=== PATIENT | male | born 1960 | race Caucasian/White ===

== ENCOUNTER 2022-10-22 08:45 | Outpatient (OUT) | payer BC, SELFPAY ==
--- NOTE | 2022-10-22 09:00 | CA_ITS ---
Patient: CONSTANZA BATISTA Exam Date: 10/22/2022 : 1960 Gender:M Ordering : DR Jose Veliz D.O. Admission #: [id number] Family : Order #: [id number] CLICK HERE TO VIEW EXAM ECHOCARDIOGRAM REPORT PROCEDURE: CA ECHO DOPPLER COMPLETE INDICATIONS: Dyspnea on exertion, fatigue, heart murmur, hypertension, diabetes COMPARISON: None. DESCRIPTION: COMPLETE ECHOCARDIOGRAM Real-time transthoracic echocardiography with 2D, M-mode, spectral and color flow Doppler performed. QUALITY: Technical quality was good. LEFT VENTRICLE: Normal chamber size. Mild concentric left ventricular hypertrophy. Normal systolic function. LV EF: Normal left ventricular ejection fraction, (65%). DIASTOLIC: Normal diastolic function. ATRIAL SEPTUM: Visually appears intact. LEFT ATRIUM: Normal chamber size. RIGHT ATRIUM: Normal chamber size. RIGHT VENTRICLE: Normal chamber size. Normal right ventricular systolic function. TRICUSPID VALVE: Normal mobility and thickness. No stenosis with trivial regurgitation. Doppler studies reveal mildly (35-45) elevated right sided pressures. RVSP 36 mmHg MITRAL VALVE: Normal mobility and thickness. No evidence of mitral valve stenosis. Mild mitral annular calcification. AORTIC VALVE: The aortic valve is likely bicuspid with a raphae [Romel type I] and fusion of the left and noncoronary cusps. Moderate calcifications are seen between the non-coronary cusp and left coronary cusp of the aortic valve. DVI 0.9. Trivial aortic regurgitation. No evidence of aortic valve stenosis. AORTIC ROOT: Normal diameter and appearance. PULMONIC VALVE: Normal thickness and mobility. No stenosis. No regurgitation. PERICARDIUM: No evidence of pericardial effusion. IVC: Collapses with inspirations. PLEURA: CONCLUSION: 1. Mild concentric left ventricular hypertrophy. Normal left normal left ventricular systolic function. LVEF is 65%. 2. Normal right ventricular size and systolic function. 3. Normal diastolic function. 4. Likely bicuspid aortic valve with a raphae [Romel type I], with no significant stenosis or regurgitation. 5. Mildly elevated right-sided pressures. Adult Echocardiography Procedure Report Left Ventricle LVEDD (3.7 - 5.6 cm): 3.46 cm LVESD (2.2 - 4.0 cm): 2.18 cm LVIVS thickness (0.6 - 1.2 cm): 1.29 cm LVPW thickness (0.5 - 1.0 cm): 1.21 cm e': 0.07 m/s E - e': 10.79 LVOT Max Gradient: 5.92 mm[Hg], 6.19 mm[Hg] LVOT Area (cm2): 1.24 m/s, 1.22 m/s Peak Velocity (LVOT): 1.24 m/s, 1.22 m/s Mean Velocity (LVOT): 0.86 m/s LVOT Diameter 2.38 cm Left Atrium LA Volume Index (2D A2C): 22.45 ml/m2 Left Atrium Systolic Dimension: 2.59 cm Mitral Valve MV E to A Ratio: 0.96, 0.89 Mitral Valve A-Wave Peak Velocity: 0.84 m/s Mitral Valve E-Wave Peak Velocity: 0.78 m/s Right Ventricle Aorta AO Root Diam: 3.18 cm Ascending Ao Diam: 3.64 cm Aortic Valve AoV Area (Peak Felix): 4.31 cm2, 4.18 cm2, 4.21 cm2, 4.08 cm2, 4.31 cm2, 4.31 cm2, 4.40 cm2, 4.40 cm2 AoV Area (VTI): 4.63 cm2, 4.25 cm2 Peak Velocity(Antegrade Flow): 1.32 m/s, 1.24 m/s, 1.25 m/s Peak Gradient(Antegrade Flow): 6.29 mm[Hg], 6.99 mm[Hg], 6.15 mm[Hg] Mean Velocity(Antegrade Flow): 1.01 m/s, 0.88 m/s Mean Gradient(Antegrade Flow): 4.35 mm[Hg], 3.29 mm[Hg] Velocity Time Integral: 34.45 cm, 28.87 cm Tricuspid Valve Peak Velocity (Regurgitant Flow): 2.49 m/s, 2.86 m/s Pulmonic Valve Peak Velocity: 0.82 m/s Peak Gradient: 2.97 mm[Hg], 2.44 mm[Hg] Right Atrium Right Atrium Systolic Pressure: 35.06 ml, 35.06 ml Dictated by: Ken Herring M.D. on 10/22/2022 at 18:19 Approved by: Ken Herring M.D. on 10/22/2022 at 18:28
== END 2022-10-22 08:46 | disposition home or self-care (01) ==
PROVIDERS: PCP Internal Medicine; Visit Provider Internal Medicine
DX: R01.1 Cardiac murmur, unspecified (principal); R53.83 Other fatigue; R06.09 Other forms of dyspnea
CPT/HCPCS: 93306

== ENCOUNTER 2022-11-04 09:10 | Outpatient (OUT) | payer BC, SELFPAY ==
[2022-11-04 09:44] LABS: Basophils Percent Auto 0.5 % (0.2-2.0); Eosinophils Absolute Auto 0.2 10^3/uL (0.0-0.7); Eosinophils Percent Auto 1.9 % (0.9-7.0); Hematocrit 44.7 % (42.0-54.0); Hemoglobin 15.2 g/dL (14.0-18.0); Immature Granulocytes Abs Auto 0.03 10^3/uL (0.00-0.03); Immature Granulocytes Pct Auto 0.4 % (0.0-0.5); Lymphocytes Absolute Auto 2.4 10^3/uL (1.2-3.8); Lymphocytes Percent Auto 28.4 % (20.5-60.0); Mean Corpuscular Hemoglobin 30.5 pg (25.9-34.0); Mean Corpuscular Volume 89.8 fL (80.0-94.0); Mean Platelet Volume 9.3 fL (9.5-13.5); Monocytes Absolute Auto 0.9 10^3/uL (0.3-0.8); Monocytes Percent Auto 10.3 % (1.7-12.0); Neutrophils Absolute Auto 4.9 10^3/uL (1.4-6.5); Neutrophils Percent Auto 58.5 % (43.0-75.0); Platelet Count 289 10^3/uL (150-450); Red Blood Count 4.98 10^6/uL (4.70-6.10); Red Cell Distribution Width 12.5 % (11.0-15.0); White Blood Count 8.3 10^3/uL (4.0-11.0)
[2022-11-04 09:57] LABS: Microalbumin Urine Random <1.3 mg/dL (<=30.0)
[2022-11-04 10:02] LABS: Alanine Aminotransferase 56 U/L (16-63); Albumin Globulin Ratio 1.3; Albumin Level 4.1 g/dL (3.4-5.0); Alkaline Phosphatase 122 U/L (46-116); Anion Gap 13.2; Aspartate Amino Transferase 19 U/L (15-37); BUN Creatinine Ratio 25.3; Bilirubin Total 0.4 mg/dL (0.2-1.0); Carbon Dioxide 29.3 mmol/L (21.0-32.0); Chloride 105 mmol/L (98-107); Chol HDL Ratio 2.5; Cholesterol 150 mg/dL (<=200); Estimated GFR (African America >60 (>=60); Estimated GFR (Non-African Ame >60 (>=60); Globulin 3.2 g/dL; Glucose 176 mg/dL (74-106); HDL Cholesterol 60 mg/dL (40-60); LDL Cholesterol Calculated 78.4 mg/dL; Potassium 4.5 mmol/L (3.5-5.1); Sodium 143 mmol/L (136-145); Total Protein 7.3 g/dL (6.4-8.2); Triglycerides 58 mg/dL (<=150); VLDL CHOLESTEROL 11.6 mg/dL
[2022-11-04 10:51] LABS: Prostate Specific Antigen Scrn 2.21 ng/mL (<=4.00)
== END 2022-11-04 09:11 | disposition home or self-care (01) ==
LOC: LAB 09:16
PROVIDERS: PCP Internal Medicine; Visit Provider Internal Medicine
DX: Z12.5 Encounter for screening for malignant neoplasm of prostate (principal); E11.65 Type 2 diabetes mellitus with hyperglycemia; E11.42 Type 2 diabetes mellitus with diabetic polyneuropathy; E78.00 Pure hypercholesterolemia, unspecified; R53.83 Other fatigue; Z79.4 Long term (current) use of insulin
CPT/HCPCS: 36415; 80053; 80061; 82043; 85025; G0103

== ENCOUNTER 2025-03-15 08:53 | Outpatient (OUT) | payer MEDICARE, SELFPAY ==
--- OUTSIDE RECORDS SUMMARY | 2024-01-03 08:15 | XMS_ITS ---
Author Organization [facility] Address [address] [place] [address] Care Team Providers Care Gynaecological Oncologist Name Role Phone MARICRUZ ABBASI DO Primary Care Provider Chai Silva Unavailable [phone] REASON FOR VISIT Cervical spondylosis with myopathy- Dr. Mills Encounters Encounter Location Date Provider Diagnosis [facility] [address] [place] [phone] 01/03/2024 Chai Varela Plan Of Treatment No Information Progress Notes * CONSTANZA BATISTADOB:1960 ( 65 yo M)Acc No.[id number]:01/03/2024 Patient:?CONSTANZA BATISTA :?Chai Varela MDDOB:1960???Age:63 Y???Sex: MaleDate:4Phone:[phone]:[address] [place] [address] [address] [place], [id number]:MARICRUZ ABBASI DO Subjective: * Chief Complaints: * 1 . Cervical spondylosis with myopathy- Dr. Mills. * Medical History: Objective: * Vitals: Assessment: Plan: * Treatment: Forms: * Images: * Electronic signature of Chai Varela MD on 03/15/2025 at 08:57 AM ESTSign off status: Pending * Provider: Oseas Varela MD Date: 0 01/03/2024 Generated for Printing/Faxing/eTransmitting on:?03/15/2025 08:57 AM EST
--- OUTSIDE RECORDS SUMMARY | 2025-03-05 09:00 | XMS_ITS | Encounter Summary ---
Author Organization [facility] Address [address], [address] [place] [address] Care Team Providers Care Envelope Sealer Operator Name Role Phone Jose Veliz DO Primary Care Provider [phone] Encounter Details DateTypeDepartmentCare Team (Latest Contact Info)Xuahqmrsoft25/04/2025 9:00 AM EST - 03/05/2025 9:24 AM ESTHospital Encounter [facility] Physical Therapy [address] [place] [address] Isreal Stephen, SHAYY Discharge Disposition: Home or Self Care Social History Tobacco UseTypesPacks/DayYears UsedDateSmoking Tobacco: FormerCigarettes Smokeless Tobacco: NeverAlcohol UseStandard Drinks/WeekCommentsNot Currently0 (1 standard drink = 0.6 oz pure alcohol)Interpersonal Safety Domain Source: IP Abuse ScreeningAnswerDate RecordedPhysical obgwpQbholu20/19/2024Verbal abuse Paddoi1304/19/2024Emotional cszeuYphqbq35/19/2024Financial bdxnrKtfjry86/19/2024 Sexual rvxxjYfyxsr33/19/2024Sex and Gender InformationValueDate RecordedSex Assigned at BirthNot on fileLegal GjvHjhv2106/11/2012 1:57 PM ESTGender Identity Not on fileSexual OrientationNot on filedocumented as of this encounter Medications at Time of Discharge MedicationSigDispense QuantityRefillsLast FilledStart DateEnd Date lisinopril (PRINIVIL;ZESTRIL) 10 MG tablet Take 1 tablet by mouth daily baclofen (LIORESAL) 10 MG tablet Take 1 tablet by mouth 3 times daily01/11/2024 metFORMIN (GLUCOPHAGE) 500 MG tablet Take 1 tablet by mouth in the morning and 1 tablet in the evening. insulin glargine (BASAGLAR KWIKPEN) 100 UNIT/ML injection pen Inject 56 Units into the skin qhwxlgm5904/02/2024 dapagliflozin (FARXIGA) 10 MG tablet Take 1 tablet by mouth every morning aspirin 81 MG EC tablet Take 1 tablet by mouth daily citalopram (CELEXA) 20 MG tablet Take 1 tablet by mouth daily atorvastatin (LIPITOR) 80 MG tablet Take 1 tablet by mouth daily amLODIPine (NORVASC) 5 MG tablet Take 1 tablet by mouth dailydocumented as of this encounter Progress Notes * Isreal Stephen, PT - 03/05/2025 9:00 AM EST [facility] Outpatient Physical Therapy Daily Note Patient: Jerome Maravilla : 1960 CSN #: [id number] Referring Physician: Dewey Mills MD Date: 03/05/2025 Treatment Diagnosis: Difficulty walking Onset Date: 12/17/21 PT Insurance Information: Medicare Total # of Visits Approved: 71 Per Physician Order Total # of Visits to Date: 71 No Show: 0 Canceled Appointment: 1 04/04/25 Plan of Care/Recert Due Pre-Treatment Pain: 0/10 Subjective: Patient reports increased stiffness, but is feeling ok. Exercises: Exercise 2: seated HS stretch 2x45 ea with AAROM Exercise 3: Amb with rollator walker: 303' before requiring a seated rest break Exercise 4: Transfer training: to and up from the floor x2 Exercise 5: Seated HS curls with Green TB x3 with 5 sec hold // LAQ x10 // Hip abd Green TB x15 Exercise 9: STS from chair x10 Exercise 15: hip abd/marching/sidestepping x10 ea Measures obtained for physician update/updated POC Assessment Body Structures, Functions, Activity Limitations Requiring Skilled Therapeutic Intervention: Decreased functional mobility , Decreased ADL status, Decreased ROM, Decreased strength, Increased pain, Decreased posture Assessment: The patient has attended his initial evaluation and 70 follow-up visits. He was hospitalized for a week and reports he is a little more stiff. On reassessment he was able to ambualte 303'with rollator walker before requiring a seated rest break. He performed the 5 time sit to insurance underwriter sales 32.64 seconds. He required moderate assistance to perform floor to stand transfer. New goals established for 5 time sit to stand test and for floor to stand transfers. 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 Activity Tolerance Activity Tolerance: Patient tolerated treatment well Patient Education Patient Education: Home safety Pt verbalized/demonstrated good understanding: [x] Yes [] No, pt required further clarification. Post Treatment Pain: 0/10 Plan Plan Frequency: 2 Plan weeks: 4 Goals (Total # of Visits to Date: 71) Short Term Goals Time Frame for Short Term Goals: 2 weeks Short Term Goal 1: Pt to initiate HEP for improved B LE strength and endurance. - MET Short Term Goal 2: Patient to tolerate 30 min of ther ex/act for improved strength and endurance. -met Short Term Goal 3: Patient to be instructed in postural awareness and gait training to improve mobility.-met Residential Goals Time Frame for Press Tender Smoke Signal Goals : 6 weeks Residential Goal 1: Pt will independent and compliant with HEP to maintain functional gains made at therapy.-progressing Residential Goal 2: Patient to be referred to freight handler for R AFO as needed to improve safety with gait.-met Residential Goal 3: Patient to be able to walk >/=350ft with FWW or LRAD with minimal gait deviations and no fatigue to improve mobility. -progressing: he was able to ambulate 303' with rollator walker before requesting a seated rest break. Press Tender Smoke Signal Goal 4: Patient to report >/=50% improvement in neck pain and LE tone for improved QOL. (--met/cont pt reports 50-60% as he is able to complete more reps and walker with greater distance, continues with gait deviations and fatigue throughout session) Press Tender Smoke Signal Goal 5: Added 09/26/24: Patient to be fitted by freight handler for B AFO's when appropriate/plantar flexor tone has sufficiently decreased and be compliant with wearing them in order to decrease fall risk with gait.- MET : wears his AFO's Additional Goals?: Yes half-way goal 6: Patient will perform the five time sit to stand test within 20 seconds to indicate improved muscular power and strength. half-way goal 7: Patient will perform floor to stand transfers with TN. Minutes Tracking: Time In: 0900 Time Out: 0945 Minutes: 45 Timed Code Treatment Minutes: 43 Minutes Isreal Stephen, PT, DPT, OCS, Cert. DN Date: 03/05/2025 documented in this encounter Plan of Treatment DateTypeDepartmentCare Team (Latest Contact Info)Jhrtqykhqcf74/18/2025 9:00 AM ESTAppointment [facility] Physical Therapy [address] [place], [place] [phone] Isreal Stephen, PT 03/19/2025 9:45 AM ESTAppointment [facility] Occupational Therapy [address] [place], [place] [phone] BelleKarina tan, OTR/L 03/21/2025 9:00 AM ESTAppointment [facility] Occupational Therapy [address] [place], [place] [phone] BelleKarina tan, OTR/L 03/21/2025 9:45 AM ESTAppointment [facility] Physical Therapy [address] [place], [place] [phone] Snow Gomez, NEON MOLDER 03/26/2025 9:00 AM ESTAppointment [facility] Physical Therapy [address] [place], [place] [phone] Isreal Stephen, PT 03/26/2025 9:45 AM ESTAppointment [facility] Occupational Therapy [address] [place], [place] [phone] BelleMikal tana, OTR/L documented as of this encounter Visit Diagnoses Not on filedocumented in this encounter Care Teams Team MemberRelationshipSpecialtyStart DateEnd Date Jsoe Veliz DO [address] [place] [address] PCP - GeneralInternal Vgvmtkyj74/5/22documented as of this encounter
--- OUTSIDE RECORDS SUMMARY | 2025-03-05 09:25 | XMS_ITS | Encounter Summary ---
Author Organization [facility] Address [address], [address] [place] [address] Care Team Providers Care Skin Tanner Name Role Phone Jose Veliz DO Primary Care Provider [phone] Encounter Details DateTypeDepartmentCare Team (Latest Contact Info)Angmdnxokkb65/04/2025 9:25 AM EST - 03/05/2025 11:[address] [facility] Occupational Therapy [address] [place] [address] Karina Odonnell OTR/Fay Discharge Disposition: Home or Self Care Social History Tobacco UseTypesPacks/DayYears UsedDateSmoking Tobacco: FormerCigarettes Smokeless Tobacco: NeverAlcohol UseStandard Drinks/WeekCommentsNot Currently0 (1 standard drink = 0.6 oz pure alcohol)Interpersonal Safety Domain Source: IP Abuse ScreeningAnswerDate RecordedPhysical vlebpIifboz17/19/2024Verbal abuse Luwkkx5504/19/2024Emotional qlptrFmyrsj77/19/2024Financial vfukpJqwyis80/19/2024 Sexual ygbpvTgqqkk90/19/2024Sex and Gender InformationValueDate RecordedSex Assigned at BirthNot on fileLegal EjcQpgw7006/11/2012 1:57 PM ESTGender Identity Not on fileSexual [...] pen Inject 56 Units into the skin ywccnzp0604/02/2024 dapagliflozin (FARXIGA) 10 MG tablet Take 1 tablet by mouth every morning aspirin 81 MG EC tablet Take 1 tablet by mouth daily citalopram (CELEXA) 20 MG tablet Take 1 tablet by mouth daily atorvastatin (LIPITOR) 80 MG tablet Take 1 tablet by mouth daily amLODIPine (NORVASC) 5 MG tablet Take 1 tablet by mouth dailydocumented as of this encounter Progress Notes * Linda Longo - 03/05/2025 9:45 AM EST Occupational Therapy [facility] Outpatient Occupational Therapy DAILY TREATMENT NOTE Date: 03/05/2025 Patient???s Name: Jerome Maravilla Date of : 1960 (65 y.o.) Gender: male [facility] #: [id number] Medical Diagnosis: Cervical myelopathy s/p anterior cervical disectomy Referring Physician: Dewey Mills MD INSURANCE OT Insurance Information: Medicare Part A and B Total # of Visits to Date: 72 PAIN [x]No []Yes Location: Pain Rating (0-10 pain scale): Pain Description: SUBJECTIVE no new complaints Flow Sheet Exercise & Manual treatment Weight/ Level Reps/Time Comments PROM x x 25 min B UE throughout shoulder > digits T-band Supine - B ER, abduction Seated - diagonals Weight bar Supine - flexion and abd/horizontal add Band Diagonals while supine Power web MP flexion/extension B hands Flexbar green x15-20 Twists and bends Pulleys Flexion and abduction with elbow extension BUE bike 3' each way 2 pt pinch B 2 pt pinch Hand master Digit flexion and extension digigrip green x15 B Pie Filler egg red x15 B Pinches, director of product development, adduction/abduction Putty Various putty tools All therapeutic exercises and manual treatment completed to improve ROM and functional use of affected extremity. Therapeutic Activities / NMR Time Task Gross/FM Wobbleball and beading utilizing bilateral UE pinch, FMC FM GPB Retrieval of items on floor Patient SBA for lowering self to floor and picking up items in quadruped. Patient SBA for recovery with extended time Darts Seated and standing to improve functional use BUE and GMC as well balance Updated GOALS Time Frame for Jail Goals : 4 weeks Document Control Clerk Goal 1: Patient to state <30% impairment throughout daily tasks, as measured by the DASH to improve functional use of BUE. Continue []Met [x]Partially met []Not met Document Control Clerk Goal 2: Patient to improve B director of product development strength to 75# to improve strength for functional use.Continue []Met [x]Partially met []Not met Document Control Clerk Goal 3: Patient to improve GMC BUE AEB ability to transfer >65 blocks bilaterally withbox and block test. Continue R 47 L 52 []Met [x]Partially met []Not met Time Frame for Short Term Goals: 3 weeks Short Term Goal 1: Patient to be educated on HEP to improve FMC, BUE strength, and ROM to improve functional use of BUE. MET Continue as patient progresses. [x]Met []Partially met []Not met Short Term Goal 2: Patient to improve B FMC and dexterity AEB ability to complete GPB L hand >3.5 minutes, R hand <4 minutes. Continue R 3:27 L 4:05 []Met []Partially met []Not met ADDITIONAL COMMENTS EDUCATION New Education provided to patient/family/caregiver: []Yes: [x]No (Continued review of prior education) If yes Education Provided: Method of Education: [x]Discussion []Demonstration [] Written []Other Evaluation of Patient???s Response to Education: [x]Patient and or caregiver verbalized understanding []Patient and or Caregiver Demonstrated without assistance []Patient and or Caregiver Demonstrated with assistance []Needs additional instruction to demonstrate understanding of education ASSESSMENT Patient tolerated today???s treatment session: [x] Good [] Fair [] Poor Limitations/difficulties with treatment session due to: []Pain []Fatigue []Other medical complications []Other Goal Assessment: [] No Change [x]Improved Minutes Tracking: Time In: 948 Time Out: 1039 Minutes: 50 Timed Code Treatment Minutes: 48 Minutes PLAN [x]Continue with current plan of care []Medical ???Hold?? []I???Hold?? per patient request [] Change Treatment plan: [] Insurance hold __ Other Electronically signed by Alvarado Izaguirre/DELANO 03/05/2025 11:13 AM Cosigned by Karina Odonnell, OTR/L at 03/05/2025 2:51 PM EST documented in this encounter Plan of Treatment DateTypeDepartmentCare Team (Latest Contact Info)Conmtpflfad06/18/2025 9:[address] Physical Therapy [address] [place] [phone] Isreal Stephen, PT 03/19/2025 9:[address] Occupational Therapy [address] [place], [place] [phone] Karina Odonnell, OTR/L 03/21/2025 9:[address] Occupational Therapy [address] [place], [place] [phone] Karina Odonnell, OTR/L 03/21/2025 9:[address] Physical Therapy [address] [place], [place] [phone] Snow Gomez, FENCE REPAIRMAN 03/26/2025 9:[address] Physical Therapy [address] [place] [phone] Isreal Stephen, PT 03/26/2025 9:[address] Occupational Therapy [address] [place], [place] [phone] Karina Odonnell, OTR/L documented as of this encounter Visit Diagnoses Not on filedocumented in this encounter Care Teams Team MemberRelationshipSpecialtyStart DateEnd Date Jose Veliz DO [address] [place] [id number] PCP - GeneralInternal Ydgzwtsi76/5/22documented as of this encounter
--- OUTSIDE RECORDS SUMMARY | 2025-03-07 09:00 | XMS_ITS | Encounter Summary ---
Author Organization [facility] Address [address] [facility] [address], [address] [place] [address] Care Team Providers Care Change Advisor Name Role Phone Jose Veliz DO Primary Care Provider [phone] Encounter Details DateTypeDepartmentCare Team (Latest Contact Info)Ofomqddvrxh87/06/2025 9:00 AM EST - 03/07/2025 9:31 AM ESTHospital Encounter [facility] Occupational Therapy [address] [place] [address] Karina Odonnell OTR/Fay Discharge Disposition: Home or Self Care Social History Tobacco UseTypesPacks/DayYears UsedDateSmoking Tobacco: FormerCigarettes Smokeless Tobacco: NeverAlcohol UseStandard Drinks/WeekCommentsNot Currently0 (1 standard drink = 0.6 oz pure alcohol)Interpersonal Safety Domain Source: IP Abuse ScreeningAnswerDate RecordedPhysical jbbaaSygxul74/19/2024Verbal abuse Jwcraa9704/19/2024Emotional syrbtOrpgqo59/19/2024Financial bcnmmSgipaw81/19/2024 Sexual mvmglHigvhp95/19/2024Sex and Gender InformationValueDate RecordedSex Assigned at BirthNot on fileLegal TvuMmat2906/11/2012 1:57 PM ESTGender Identity Not on fileSexual [...] pen Inject 56 Units into the skin tyxpdem0104/02/2024 dapagliflozin (FARXIGA) 10 MG tablet Take 1 [...] encounter Progress Notes * Linda Longo - 03/07/2025 9:00 AM EST Occupational Therapy [facility] Outpatient Occupational Therapy DAILY TREATMENT NOTE Date: 03/07/2025 Patient???s Name: Jerome Maravilla Date of : 1960 (65 y.o.) Gender: male [facility] #: [id number] Medical Diagnosis: Cervical myelopathy s/p anterior cervical disectomy Referring Physician: Dewey Mills MD INSURANCE OT Insurance Information: Medicare Part A and B Total # of Visits to Date: 73 PAIN [x]No []Yes Location: Pain Rating (0-10 pain scale): Pain Description: SUBJECTIVE Pt states he feels less tight today. Flow Sheet Exercise & Manual treatment Weight/ [...] flexion and extension digigrip green x15 B Lie Detector Operator egg red x15 B Pinches, barn operator, adduction/abduction Putty Various putty tools All therapeutic exercises and manual treatment completed to improve ROM and functional use of affected extremity. Therapeutic Activities / NMR Time Task Gross/FM Wobbleball and beading utilizing bilateral UE pinch, FMC FM 15' Mini connect 4 Retrieval of items on floor Patient SBA for lowering self to floor and picking up items in quadruped. Patient SBA for recovery with extended time Darts Seated and standing to improve functional use BUE and GMC as well balance Updated GOALS Time Frame for Safety Spec Goals : 4 weeks Safety Spec Goal 1: Patient to state <30% impairment throughout daily tasks, as measured by the DASH to improve functional use of BUE. Continue []Met [x]Partially met []Not met Safety Spec Goal 2: Patient to improve B barn operator strength to 75# to improve strength for functional use.Continue []Met [x]Partially met []Not met Half-Way Goal 3: Patient to improve GMC BUE AEB ability to transfer >65 blocks bilaterally withbox and block test. Continue []Met [x]Partially met []Not met Time Frame [...] GPB L hand >3.5 minutes, R hand <3 minutes. Continue []Met []Partially met []Not met ADDITIONAL COMMENTS [...] No Change [x]Improved Minutes Tracking: Time In: 857 Time Out: 945 Minutes: 48 Timed Code Treatment Minutes: 46 Minutes PLAN [x]Continue with current plan of care []Medical ???Hold?? []I???Hold?? per patient request [] Change Treatment plan: [] Insurance hold __ Other Electronically signed by Alvarado Izaguirre/OT 03/07/2025 9:46 AM Cosigned by Karina Odonnell, OTR/L at 03/08/2025 1:57 PM EST documented in this encounter Plan of Treatment DateTypeDepartmentCare Team (Latest Contact Info)Apclzuuzbkb66/18/2025 9:00 AM ESTAppointment [facility] Physical Therapy [address] [place] [phone] Isreal Stephen, PT 03/19/2025 9:45 AM ESTAppointment [facility] Occupational Therapy [address] [place], [place] [phone] Karina Odonnell, OTR/L 03/21/2025 9:00 AM ESTAppointment [facility] Occupational Therapy [address] [place], [place] [phone] Karina Odonnell, OTR/L 03/21/2025 9:45 AM ESTAppointment [facility] Physical Therapy [address] [place], [place] [phone] Snow Gomez, FLUORESCENT LIGHTING MODEL MAKER 03/26/2025 9:00 AM ESTAppointment [facility] Physical Therapy [address] [place] [phone] Isreal Stephen, PT 03/26/2025 9:45 AM ESTAppointment [facility] Occupational Therapy [address] [place], [place] [phone] Karina Odonnell, OTR/L documented as of this encounter Visit Diagnoses Not on filedocumented in this encounter Care Teams Team MemberRelationshipSpecialtyStart DateEnd Date Jose Veliz DO [address] [place] [phone] PCP - GeneralInternal Usdfebdo95/5/22documented as of this encounter
--- OUTSIDE RECORDS SUMMARY | 2025-03-07 09:32 | XMS_ITS | Encounter Summary ---
Author Organization [facility] Address [address], [address] [place] [address] Care Team Providers Care Industrial Health Engineer Name Role Phone Jose Veliz DO Primary Care Provider [phone] Encounter Details DateTypeDepartmentCare Team (Latest Contact Info)Imkpbdamhnd69/06/2025 9:32 AM EST - 03/07/2025 11:59 PM ESTHospital Encounter [facility] Physical Therapy [address] [place] [address] Snow Gomez PTA Discharge Disposition: Home or Self Care Social History Tobacco UseTypesPacks/DayYears UsedDateSmoking Tobacco: FormerCigarettes Smokeless Tobacco: NeverAlcohol UseStandard Drinks/WeekCommentsNot Currently0 (1 standard drink = 0.6 oz pure alcohol)Interpersonal Safety Domain Source: IP Abuse ScreeningAnswerDate RecordedPhysical reroqFegczh03/19/2024Verbal abuse Birxxw0804/19/2024Emotional uevzfUkgoql05/19/2024Financial xkpltRihkix61/19/2024 Sexual labevKttpnd51/19/2024Sex and Gender InformationValueDate RecordedSex Assigned at BirthNot on fileLegal SlrVxmf3606/11/2012 1:57 PM ESTGender Identity Not on fileSexual [...] pen Inject 56 Units into the skin itozuaz6504/02/2024 dapagliflozin (FARXIGA) 10 MG tablet Take 1 tablet by mouth every morning aspirin 81 MG EC tablet Take 1 tablet by mouth daily citalopram (CELEXA) 20 MG tablet Take 1 tablet by mouth daily atorvastatin (LIPITOR) 80 MG tablet Take 1 tablet by mouth daily amLODIPine (NORVASC) 5 MG tablet Take 1 tablet by mouth dailydocumented as of this encounter Progress Notes * Snow Gomez PTA - 03/07/2025 9:45 AM EST [facility] Outpatient Physical Therapy Daily Note Patient: Jerome Maravilla : 1960 CSN #: [id number] Referring Physician: Dewey Mills MD Date: 03/07/2025 Treatment Diagnosis: Difficulty walking Onset Date: 12/17/21 PT Insurance Information: Medicare Total # of Visits Approved: 71 Per Physician Order Total # of Visits to Date: 72 No Show: 0 Canceled Appointment: 1 04/04/25 Plan of Care/Recert Due Pre-Treatment Pain: 0/10 Subjective: Pt denies pain this date, states that he is doing good. Exercises: Exercise 3: Amb with rollator walker: 350' Exercise 15: standing sink therex x10 ea Exercise 16: supine : bridges 2 x 10 // SLR 2 x 10 //supine knee <> chest 8x each leg // hip abd x 10 // chin tuck + lift x 10 , CROM rot 2 x 15--bridges only Manual: Joint Mobilization: PROM B LE's all major joints and planes, passive LTR to improve trunk ROM to decrease tone and improve mobility Assessment Assessment: Focused today's session on stretching d/t increased stiffness with relief noted post performance. Pt completed standing therex this date with good posture and technique. Noted pt's heel'swould come off floor with performance of squats, vc's to try and keep them on floor with fair carryover noted. Continue with stretches and strengthening next session. Will continue to progress as tole rated. Activity Tolerance Activity Tolerance: Patient tolerated treatment well Patient Education Patient Education: Home safety Pt verbalized/demonstrated good understanding: [x] Yes [] No, pt required further clarification. Post Treatment Pain: 0/10 Plan Plan Frequency: 2 Plan weeks: 4 Goals (Total # of Visits to Date: 72) Short Term Goals Time Frame for Short Term Goals: 2 weeks Short Term Goal 1: Pt to initiate HEP for improved B LE strength and endurance. - MET Short Term Goal 2: Patient to tolerate 30 min of ther ex/act for improved strength and endurance. -met Short Term Goal 3: Patient to be instructed in postural awareness and gait training to improve mobility.-met Long-Term Goals Time Frame for Long-Term Goals : 6 weeks Legislators Goal 1: Pt will independent and compliant with HEP to maintain functional gains made at therapy.-progressing Legislators Goal 2: Patient to be referred to behavioral health clinician for R AFO as needed to improve safety with gait.-met Legislators Goal 3: Patient to be able to walk >/=350ft with FWW or LRAD with minimal gait deviations and no fatigue to improve mobility. -progressing: he was able to ambulate 303' with rollator walker before requesting a seated rest break. Long-Term Goal 4: Patient to report >/=50% improvement in neck pain and LE tone for improved QOL. (--met/cont pt reports 50-60% as he is able to complete more reps and walker with greater distance, continues with gait deviations and fatigue throughout session) Legislators Goal 5: Added 09/26/24: Patient to be fitted by behavioral health clinician for B AFO's when appropriate/plantar flexor tone has sufficiently decreased and be compliant with wearing them in order to decrease fall risk with gait.- MET : wears his AFO's superintendent container terminal goal 6: Patient will perform the five time sit to stand test within 20 seconds to indicate improved muscular power and strength. snf goal 7: Patient will perform floor to stand transfers with [place]. Minutes Tracking: Time In: 0900 Time Out: 940 Minutes: 41 Snow Gomez PTA Date: 03/07/2025 Cosigned by Isreal Stephen, PT at 03/07/2025 10:58 AM EST documented in this encounter Plan of Treatment DateTypeDepartmentCare Team (Latest Contact Info)Ibneuelywif44/18/2025 9:00 AM ESTAppointment [facility] Physical Therapy [address] [place] [address] Isreal Stephen, PT 03/19/2025 9:45 AM ESTAppointment [facility] Occupational Therapy [address] [place], [place] [phone] Karina Odonnell, OTR/L 03/21/2025 9:00 AM ESTAppointment [facility] Occupational Therapy [address] [place] [address] Karina Odonnell OTR/L 03/21/2025 9:45 AM ESTAppointment [facility] Physical Therapy [address] [place] [phone] Snow Gomez, HYDRAULIC JACK ADJUSTER 03/26/2025 9:00 AM ESTAppointment [facility] Physical Therapy [address] [place] [address], [facility] Isreal Stephen, PT 03/26/2025 9:45 AM ESTAppointment [facility] Occupational Therapy [address] [place] [address] Karina Odonnell, OTR/L documented as of this encounter Visit Diagnoses Not on filedocumented in this encounter Care Teams Team MemberRelationshipSpecialtyStart DateEnd Date Jose Veliz DO [address] [facility] [place] [address] PCP - GeneralInternal Rpqjfslf88/5/22documented as of this encounter
--- OUTSIDE RECORDS SUMMARY | 2025-03-12 09:00 | XMS_ITS | Encounter Summary ---
Author Organization [facility] Address [address], [address] [place] [address] Care Team Providers Care Pole Shaver Name Role Phone Jose Veliz DO Primary Care Provider [phone] Encounter Details DateTypeDepartmentCare Team (Latest Contact Info)Dnemmtmleby69/11/2025 9:00 AM EST - 03/12/2025 9:09 AM ESTHospital Encounter [facility] Physical Therapy [address] [place] [address] Iseral Stephen, PT Arrived Discharge Disposition: Home or Self Care Social History Tobacco UseTypesPacks/DayYears UsedDateSmoking Tobacco: FormerCigarettes Smokeless Tobacco: NeverAlcohol UseStandard Drinks/WeekCommentsNot Currently0 (1 standard drink = 0.6 oz pure alcohol)Interpersonal Safety Domain Source: IP Abuse ScreeningAnswerDate RecordedPhysical vpxtxFyrsth54/19/2024Verbal abuse Zlyhnd2004/19/2024Emotional xigjmRlnyxh34/19/2024Financial hydvlJcxhgs60/19/2024 Sexual pqbtbFsholh63/19/2024Sex and Gender InformationValueDate RecordedSex Assigned at BirthNot on fileLegal CbqScdr7606/11/2012 1:57 PM ESTGender Identity Not on fileSexual [...] pen Inject 56 Units into the skin mzeitfx7304/02/2024 dapagliflozin (FARXIGA) 10 MG tablet Take 1 [...] Progress Notes * Isreal Stephen, PT - 03/12/2025 9:00 AM EST [facility] Outpatient Physical Therapy Daily Note Patient: Jerome Maravilla : 1960 CSN #: [id number] Referring Physician: Dewey Mills MD Date: 03/12/2025 Treatment Diagnosis: Difficulty walking Onset Date: 12/17/21 PT Insurance Information: Medicare Total # of Visits Approved: 79 Per Physician Order Total # of Visits to Date: 73 No Show: 0 Canceled Appointment: 1 04/04/25 Plan of Care/Recert Due Pre-Treatment Pain: 0/10 Subjective: Patient denies pain coming into therapy. He reports he is doing well. Exercises: Exercise 2: seated HS stretch 2x45 ea with AAROM Exercise 3: Amb with rollator walker: 350' Exercise 4: Transfer training: to and up from the floor x2 ea leg Exercise 9: STS from chair x12, x8 Exercise 15: standing sink therex x10 ea Assessment Body Structures, Functions, Activity Limitations Requiring Skilled Therapeutic Intervention: Decreased functional mobility , Decreased ADL status, Decreased ROM, Decreased strength, Increased pain, Decreased posture Assessment: Continued to progress repetitions of exercises to work toward his jail goals. Patient demonstrated improved transfer to and from the floor. He reported fatigue following his tx session. Activity Tolerance Activity Tolerance: Patient tolerated treatment well Patient Education Patient Education: Home safety Pt verbalized/demonstrated good understanding: [x] Yes [] No, pt required further clarification. Post Treatment Pain: 0/10 Plan Plan Frequency: 2 Plan weeks: 4 Goals (Total # of Visits to Date: 73) Short Term Goals Time Frame for Short Term Goals: 2 weeks Short Term Goal 1: Pt to initiate HEP for improved B LE strength and endurance. - MET Short Term Goal 2: Patient to tolerate 30 min of ther ex/act for improved strength and endurance. -met Short Term Goal 3: Patient to be instructed in postural awareness and gait training to improve mobility.-met Fdc Goals Time Frame for Hand Rounder Goals : 6 weeks Hand Rounder Goal 1: Pt will independent and compliant with HEP to maintain functional gains made at therapy.-progressing Fdc Goal 2: Patient to be referred to computer science professor for R AFO as needed to improve safety with gait.-met Hand Rounder Goal 3: Patient to be able to walk >/=350ft with FWW or LRAD with minimal gait deviations and no fatigue to improve mobility. -progressing: he was able to ambulate 303' with rollator walker before requesting a seated rest break. Hand Rounder Goal 4: Patient to report >/=50% improvement in neck pain and LE tone for improved QOL. (--met/cont pt reports 50-60% as he is able to complete more reps and walker with greater distance, continues with gait deviations and fatigue throughout session) Fdc Goal 5: Added 09/26/24: Patient to be fitted by computer science professor for B AFO's when appropriate/plantar flexor tone has sufficiently decreased and be compliant with wearing them in order to decrease fall risk with gait.- MET : wears his AFO's senior care goal 6: Patient will perform the five time sit to stand test within 20 seconds to indicate improved muscular power and strength. senior care goal 7: Patient will perform floor to stand transfers with [place]. Minutes Tracking: Time In: 850 Time Out: 931 Minutes: 41 Timed Code Treatment Minutes: 39 Minutes Isreal Stephen PT, DPT, OCS, Cert. DN Date: 03/12/2025 documented in this encounter Plan of Treatment DateTypeDepartmentCare Team (Latest Contact Info)Ztfjxpabxku60/18/2025 9:00 AM ESTAppointment [facility] Physical Therapy [address] [place] [phone] Isreal Stephen PT 03/19/2025 9:45 AM ESTAppointment [facility] Occupational Therapy [address] [place] [address] Karina Odonnell, OTR/L 03/21/2025 9:00 AM ESTAppointment [facility] Occupational Therapy [address] [place] [address] Karina Odonnell, OTR/L 03/21/2025 9:45 AM ESTAppointment [facility] Physical Therapy [address] [place] [phone] Snow Gomez, OFFICE 365 CONSULTANT 03/26/2025 9:00 AM ESTAppointment [facility] Physical Therapy [address] [place] [address] [phone] Isreal Stephen, PT 03/26/2025 9:45 AM ESTAppointment [facility] Occupational Therapy [address] [place] [phone] Karina Odonnell, OTR/L documented as of this encounter Visit Diagnoses Not on filedocumented in this encounter Care Teams Team MemberRelationshipSpecialtyStart DateEnd Date Jose Veliz DO [address] [place] [address] PCP - GeneralInternal Acarzzxq27/5/22documented as of this encounter
--- OUTSIDE RECORDS SUMMARY | 2025-03-12 09:10 | XMS_ITS | Encounter Summary ---
Author Organization [facility] Address [address], [address] [place] [address] Care Team Providers Care Diesel Technician Name Role Phone Jose Veliz DO Primary Care Provider [phone] Encounter Details DateTypeDepartmentCare Team (Latest Contact Info)Gdwllktpgjw05/11/2025 9:10 AM EST - 03/12/2025 11:59 PM ESTHospital Encounter [facility] Occupational Therapy [address] [phone] Karina Odonnell OTR/Fay Arrived Discharge Disposition: Home or Self Care Social History Tobacco UseTypesPacks/DayYears UsedDateSmoking Tobacco: FormerCigarettes Smokeless Tobacco: NeverAlcohol UseStandard Drinks/WeekCommentsNot Currently0 (1 standard drink = 0.6 oz pure alcohol)Interpersonal Safety Domain Source: IP Abuse ScreeningAnswerDate RecordedPhysical muuhzMvbcbc46/19/2024Verbal abuse Sibmde5704/19/2024Emotional vgncyFxigox57/19/2024Financial xkfagLcgote43/19/2024 Sexual wlkkjFdityi36/19/2024Sex and Gender InformationValueDate RecordedSex Assigned at BirthNot on fileLegal ZxxFnnf7706/11/2012 1:57 PM ESTGender Identity Not on fileSexual [...] pen Inject 56 Units into the skin xgexwxp6104/02/2024 dapagliflozin (FARXIGA) 10 MG tablet Take 1 [...] encounter Progress Notes * Linda Longo - 03/12/2025 9:45 AM EST Occupational Therapy [facility] Outpatient Occupational Therapy DAILY TREATMENT NOTE Date: 03/12/2025 Patient???s Name: Jerome Maravilla Date of : 1960 (65 y.o.) Gender: male [facility] #: [id number] Medical Diagnosis: Cervical myelopathy s/p anterior cervical disectomy Referring Physician: Dewey Mills MD INSURANCE OT Insurance Information: Medicare Part A and B Total # of Visits to Date: 74 PAIN [x]No []Yes Location: Pain Rating (0-10 pain scale): Pain Description: SUBJECTIVE Pt states he feels like his arms are squeezing in towards his body more. Flow Sheet Exercise & Manual treatment Weight/ [...] pinch B 2 pt pinch Hand master red x15 Digit flexion and extension digigrip green x15 B Tax Manager egg red x15 B Pinches, publicity manager, adduction/abduction Putty Various putty tools All therapeutic exercises and manual treatment completed to improve ROM and functional use of affected extremity. Therapeutic Activities / NMR Time Task Gross/FM Wobbleball and beading utilizing bilateral UE pinch, FMC FM 10' Squigz standing at window for balance and FMC Retrieval of items on floor Patient SBA for lowering self to floor and picking up items in quadruped. Patient SBA for recovery with extended time Darts Seated and standing to improve functional use BUE and GMC as well balance Updated GOALS Time Frame for Halfway Goals : 4 weeks Traffic Lieutenant Goal 1: Patient to state <30% impairment throughout daily tasks, as measured by the DASH to improve functional use of BUE. Continue []Met [x]Partially met []Not met Traffic Lieutenant Goal 2: Patient to improve B publicity manager strength to 75# to improve strength for functional use.Continue []Met [x]Partially met []Not met Halfway Goal 3: Patient to improve GMC BUE [...] No Change [x]Improved Minutes Tracking: Time In: 0945 Time Out: 1031 Minutes: 46 Timed Code Treatment Minutes: 44 Minutes PLAN [x]Continue with current plan of care []Medical ???Hold?? []I???Hold?? per patient request [] Change Treatment plan: [] Insurance hold __ Other Electronically signed by Alvarado Izaguirre/DELANO 03/12/2025 11:52 AM Cosigned by Karina Odonnell OTR/L at 03/15/2025 8:44 AM EST documented in this encounter Plan of Treatment DateTypeDepartmentCare Team (Latest Contact Info)Vcmzhzrqhwi42/18/2025 9:00 AM ESTAppointment [facility] Physical Therapy [address] [place], [place] [phone] Isreal Stephen, PT 03/19/2025 9:45 AM ESTAppointment [facility] [address] [place], [place] [phone] Karina Odonnell, OTR/L 03/21/2025 9:00 AM ESTAppointment [facility] Occupational Therapy [address] [place], [place] [phone] Karina Odonnell, OTR/L 03/21/2025 9:45 AM ESTAppointment [facility] Physical Therapy [address] [place], [place] [phone] Snow Gomez, APARTMENT MAINTENANCE 03/26/2025 9:00 AM ESTAppointment [facility] Physical Therapy [address] [place], [place] [phone] Isreal Stephen, PT 03/26/2025 9:45 AM ESTAppointment [facility] Occupational Therapy [address] [place], [place] [phone] Karina Odonnell, OTR/L documented as of this encounter Visit Diagnoses Not on filedocumented in this encounter Care Teams Team MemberRelationshipSpecialtyStart DateEnd Date Jose Veliz DO [address] [place] [address] PCP - GeneralInternal Plalbtyf26/5/22documented as of this encounter
--- OUTSIDE RECORDS SUMMARY | 2025-03-14 09:00 | XMS_ITS | Encounter Summary ---
Author Organization [facility] Address [address], [address] [place] [address] Care Team Providers Care Tape Maker Name Role Phone Jose Veliz DO Primary Care Provider [phone] Encounter Details DateTypeDepartmentCare Team (Latest Contact Info)Qetqzkiliqw73/13/2025 9:00 AM EST - 03/14/2025 9:38 AM ESTHospital Encounter [facility] Occupational Therapy [address] [place] [address] Karina Odonnell OTR/Fay Arrived Discharge Disposition: Home or Self Care Social History Tobacco UseTypesPacks/DayYears UsedDateSmoking Tobacco: FormerCigarettes Smokeless Tobacco: NeverAlcohol UseStandard Drinks/WeekCommentsNot Currently0 (1 standard drink = 0.6 oz pure alcohol)Interpersonal Safety Domain Source: IP Abuse ScreeningAnswerDate RecordedPhysical wambpHtmuis15/19/2024Verbal abuse Ctyjwq8104/19/2024Emotional xjbwnRkdcvf81/19/2024Financial jiywnLxihsy90/19/2024 Sexual ibyktHcaoei60/19/2024Sex and Gender InformationValueDate RecordedSex Assigned at BirthNot on fileLegal FzrCftx8406/11/2012 1:57 PM ESTGender Identity Not on fileSexual [...] pen Inject 56 Units into the skin tnhkuzq0404/02/2024 dapagliflozin (FARXIGA) 10 MG tablet Take 1 tablet by mouth every morning aspirin 81 MG EC tablet Take 1 tablet by mouth daily citalopram (CELEXA) 20 MG tablet Take 1 tablet by mouth daily atorvastatin (LIPITOR) 80 MG tablet Take 1 tablet by mouth daily amLODIPine (NORVASC) 5 MG tablet Take 1 tablet by mouth dailydocumented as of this encounter Plan of Treatment DateTypeDepartmentCare Team (Latest Contact Info)Rrovvrjplmj78/18/2025 9:00 AM ESTAppointment [facility] Physical Therapy [address] [place], [place] [phone] Isreal Stephen, PT 03/19/2025 9:45 AM ESTAppointment [facility] Occupational Therapy [address] [place], [place] [phone] BelleKarina tan, OTR/L 03/21/2025 9:00 AM ESTAppointment [facility] Occupational Therapy [address] [place], [place] [phone] Karina Odonnell, OTR/L 03/21/2025 9:45 AM ESTAppointment [facility] Physical Therapy [address] [place], [place] [phone] Snow Gomez, SCULPTURE INSTRUCTOR 03/26/2025 9:00 AM ESTAppointment [facility] Physical Therapy [address] [place] [phone] Isreal Stephen, PT 03/26/2025 9:45 AM ESTAppointment [facility] Occupational Therapy [address] [place], [place] [phone] BelleKarina tan, OTR/L documented as of this encounter Visit Diagnoses Not on filedocumented in this encounter Care Teams Team MemberRelationshipSpecialtyStart DateEnd Date Jose Veliz DO [address] [place] [address] PCP - GeneralInternal Wnxqddxp68/5/22documented as of this encounter
--- OUTSIDE RECORDS SUMMARY | 2025-03-14 09:39 | XMS_ITS | Encounter Summary ---
Author Organization [facility] Address [address], [address] [place] [address] Care Team Providers Care Sealer Dry Cell Name Role Phone Jose Veliz DO Primary Care Provider [phone] Encounter Details DateTypeDepartmentCare Team (Latest Contact Info)Nxrlonvzpyy68/13/2025 9:39 AM EST - 03/14/2025 11:59 PM ESTHospital Encounter [facility] Therapy [address] [place] [address] Pascual Cao PTA Arrived Discharge Disposition: Home or Self Care Social History Tobacco UseTypesPacks/DayYears UsedDateSmoking Tobacco: FormerCigarettes Smokeless Tobacco: NeverAlcohol UseStandard Drinks/WeekCommentsNot Currently0 (1 standard drink = 0.6 oz pure alcohol)Interpersonal Safety Domain Source: IP Abuse ScreeningAnswerDate RecordedPhysical pzdyyUtmmfl21/19/2024Verbal abuse Gurkxu2104/19/2024Emotional gstoeQiidzn39/19/2024Financial uxxwtKprlok67/19/2024 Sexual kmtinGgbtgd21/19/2024Sex and Gender InformationValueDate RecordedSex Assigned at BirthNot on fileLegal RilCxyc2506/11/2012 1:57 PM ESTGender Identity Not on fileSexual [...] pen Inject 56 Units into the skin nkbxasr4304/02/2024 dapagliflozin (FARXIGA) 10 MG tablet Take 1 tablet by mouth every morning aspirin 81 MG EC tablet Take 1 tablet by mouth daily citalopram (CELEXA) 20 MG tablet Take 1 tablet by mouth daily atorvastatin (LIPITOR) 80 MG tablet Take 1 tablet by mouth daily amLODIPine (NORVASC) 5 MG tablet Take 1 tablet by mouth dailydocumented as of this encounter Progress Notes * Pascual Cao PTA - 03/14/2025 9:45 AM EST Physical Therapy [facility] Outpatient Physical Therapy Daily Note Patient: Jerome Maravilla : 1960 CSN #: [id number] Referring Physician: Dewey Mills MD Date: 03/14/2025 Treatment Diagnosis: Difficulty walking Onset Date: 12/17/21 PT Insurance Information: Medicare Total # of Visits Approved: 79 Per Physician Order Total # of Visits to Date: 74 No Show: 0 Canceled Appointment: 1 04/04/25 Plan of Care/Recert Due Pre-Treatment Pain: 0/10 Subjective: Denies pain, reports usual stiffness. Pretty tired after last session espcially with floor <> chair transfers. Exercises: Exercise 1: HEP: Seated and standing B LE ther ex as tolerated Exercise 2: seated HS stretch 2 x 1 minutes ea with AAROM Exercise 3: Amb with rollator walker: 350' Exercise 4: Transfer training: to and up from the floor x2 ea leg Exercise 5: Seated HS curls with Green TB x3 with 5 sec hold // LAQ x10 // Hip abd Green TB x15 Exercise 8: squats with bars x 10 // drop back mini lunges with bars 2 x 3 each Exercise 9: STS from chair x12, x8 Exercise 10: Seated DF x32 ea no band today Exercise 12: Standing step stretches 2x30 ea knee flex only today Exercise 14: step taps x7 6 B LE//FSU 6 10x ea leg- step taps only today Exercise 15: standing sink therex x8-10 ea Assessment Body Structures, Functions, Activity Limitations Requiring Skilled Therapeutic Intervention: Decreased functional mobility , Decreased ADL status, Decreased ROM, Decreased strength, Increased pain, Decreased posture Assessment: Added squats and drop back lunges with bars to improve functional knee flexion and gross LE strength for floor <> stand transfers. Able to complete floor <> stand with less asstiance today. Fatigue reported after therapy, will progress as able. Activity Tolerance Activity Tolerance: Patient tolerated treatment well Patient Education Patient Education: Home safety Pt verbalized/demonstrated good understanding: [x] Yes [] No, pt required further clarification. Post Treatment Pain: 0/10 Plan Plan Frequency: 2 Plan weeks: 4 Goals (Total # of Visits to Date: 74) Short Term Goals Time Frame for Short Term Goals: 2 weeks Short Term Goal 1: Pt to initiate HEP for improved B LE strength and endurance. - MET Short Term Goal 2: Patient to tolerate 30 min of ther ex/act for improved strength and endurance. -met Short Term Goal 3: Patient to be instructed in postural awareness and gait training to improve mobility.-met Care Home Goals Time Frame for Care Home Goals : 6 weeks Engineer Assistant Goal 1: Pt will independent and compliant with HEP to maintain functional gains made at therapy.-progressing Care Home Goal 2: Patient to be referred to dental cream maker for R AFO as needed to improve safety with gait.-met Care Home Goal 3: Patient to be able to walk >/=350ft with FWW or LRAD with minimal gait deviations and no fatigue to improve mobility. -progressing: he was able to ambulate 303' with rollator walker before requesting a seated rest break. Engineer Assistant Goal 4: Patient to report >/=50% improvement in neck pain and LE tone for improved QOL. (--met/cont pt reports 50-60% as he is able to complete more reps and walker with greater distance, continues with gait deviations and fatigue throughout session) Care Home Goal 5: Added 09/26/24: Patient to be fitted by dental cream maker for B AFO's when appropriate/plantar flexor tone has sufficiently decreased and be compliant with wearing them in order to decrease fall risk with gait.- MET : wears his AFO's terminal superintendent goal 6: Patient will perform the five time sit to stand test within 20 seconds to indicate improved muscular power and strength. terminal superintendent goal 7: Patient will perform floor to stand transfers with CA. Minutes Tracking: Time In: 0945 Time Out: 1026 Minutes: 41 Pascual Cao, EXCEL VBA DEVELOPER Date: 03/14/2025 Cosigned by Isreal Stephen, PT at 03/14/2025 10:30 AM EST documented in this encounter Plan of Treatment DateTypeDepartmentCare Team (Latest Contact Info)Xfzjxryrxwx64/18/2025 9:00 AM ESTAppointment [facility] [address] [place] [phone] Isreal Stephen, PT 03/19/2025 9:45 AM ESTAppointment [facility] Occupational Therapy [address] [place], [place] [phone] Karina Odonnell, OTR/L 03/21/2025 9:00 AM ESTAppointment [facility] Occupational Therapy [address] [place], [place] [phone] Karina Odonnell, OTR/L 03/21/2025 9:45 AM ESTAppointment [facility] Physical Therapy [address] [place], [place] [phone] Snow Gomez, EXCEL VBA DEVELOPER 03/26/2025 9:00 AM ESTAppointment [facility] Physical Therapy [address] [place] [phone] Isreal Stephen, PT 03/26/2025 9:45 AM ESTAppointment [facility] Occupational Therapy [address] [place] [phone] Karina Odonnell, OTR/L documented as of this encounter Visit Diagnoses Not on filedocumented in this encounter Care Teams Team MemberRelationshipSpecialtyStart DateEnd Date Jose Veliz DO [address] [place] [id number] PCP - GeneralInternal Rofkqzne23/5/22documented as of this encounter
--- NOTE | 2025-03-15 | NM_ITS ---
Patient Name: CONSTANZA BATISTA MR#: [id number] : 1960 Exam Date: 03/15/2025 Ordering Doctor: DR MARICRUZ ABBASI D.O. RADIOLOGY REPORT PROCEDURE: NM MILAGROS PERF SPECT REST STR COMPARISON: None. INDICATIONS: CHEST PAIN, TYPE 2 DIABETES, HTN, HYPERCHOLESTEROLEMIA TECHNIQUE: Exam Description: Stress/Rest one day protocol gated SPECT Rest Imagin.1 mCi Tc-99m Cardiolite IV on 03/15/2025 Stress Imaging 29.9 mCi Tc-99m Cardiolite IV on 03/15/2025 Exercise Protocol: 0.4 mg Lexiscan given IV Heart Rate (bpm): Rest: 60 Max: 76 PMHR: 49 Blood Pressure: Rest: 182/81 Max: 182/81 Symptoms: Rest and peak stress ECG findings were pending and the EKG portion of the study was pending per attending physician [facility] . For more details please see separate cardiac stress test report. FINDINGS: Good QUALITY OF STUDY: PERFUSION DEFECT: LOCATION: Inferoapical SIZE: Small SEVERITY: Moderate TYPE: Fixed with adequate contractility likely soft tissue attenuation WALL MOTION: Normal LV SIZE: 74 mL. TID / TCD: 0.8 LVEF: Calculated EF 71%. SUMMARY: Normal myocardial perfusion imaging study CONCLUSION: Normal myocardial perfusion stress images without evidence of ischemia or infarction Normal left ventricle systolic function, ejection fraction 71% No transient ischemic dilatation, TID 0.8 EKG portion of stress test is reported separately Dictated by: Samantha Fisher MD on 03/18/2025 at 17:24 Approved by: Samantha Fisher MD on 03/18/2025 at 17:28
--- OUTSIDE RECORDS SUMMARY | 2025-03-15 08:58 | XMS_ITS | Patient Health Record ---
Author Organization [facility] Address [address] [place] [address] Care Team Providers Care Medical Imaging Director Name Role Phone MARICRUZ ABBASI DO Primary Care Provider Chai Silva Unavailable [phone] Reason For Referral No Information Plan Of Treatment No Information Insurance Providers Payer Name Payer Address Payer Phone Subscriber Number Group Number Insured Name Patient Relationship to Insured Coverage Start Date Coverage End Date [place] [address] [place] [address] [id number] Lisa BATISTA - patient is the insuredAA SUPPLEMENTPO [address] [place] [id number], [id number] - patient is the insured
--- OUTSIDE RECORDS SUMMARY | 2025-03-15 08:58 | XMS_ITS | Clinical Summary ---
Author Organization [facility] Address [address], [address] [place] [address] Care Team Providers Care Re Etcher Name Role Phone Jose Veliz DO Primary Care Provider [phone] Allergies Active AllergyReactionsCriticalityNoted DateCommentsSulfa AntibioticsHives 11/18/2022 Medications MedicationSigDispense QuantityRefillsLast FilledStart DateEnd DateStatus lisinopril (PRINIVIL;ZESTRIL) 10 MG tablet Take 1 tablet by mouth dailyActive baclofen (LIORESAL) 10 MG tablet Take 1 tablet by mouth 3 times daily01/11/2024ctive metFORMIN (GLUCOPHAGE) 500 MG tablet Take 1 tablet by mouth in the morning and 1 tablet in the evening.Active insulin glargine (BASAGLAR KWIKPEN) 100 UNIT/ML injection pen Inject 56 Units into the skin yisclez0904/02/2024ctive dapagliflozin (FARXIGA) 10 MG tablet Take 1 tablet by mouth every morningActive aspirin 81 MG EC tablet Take 1 tablet by mouth dailyActive citalopram (CELEXA) 20 MG tablet Take 1 tablet by mouth dailyActive atorvastatin (LIPITOR) 80 MG tablet Take 1 tablet by mouth dailyActive amLODIPine (NORVASC) 5 MG tablet Take 1 tablet by mouth dailyActive Encounters DateTypeDepartmentCare ZkfvCgpvgteklvr89/13/2025 9:39 AM EST - 03/14/2025 11:59 PM ESTHospital Encounter [facility] Physical Therapy [address] [place] [address] Pascual Cao PTA Arrived Discharge Disposition: Home or Self Care03/14/2025 9:00 AM EST - 03/14/2025 9:38 AM ESTHospital Encounter [facility] Occupational Therapy [address] [place] [phone] Karina Odonnell, OTR/L Arrived Discharge Disposition: Home or Self Care03/12/2025 9:10 AM EST - 03/12/2025 11:59 PM ESTHospital Encounter [facility] Occupational Therapy [address] [place] [address] 13616 Karina Odonnell, OTR/L Arrived Discharge Disposition: Home or Self Care03/12/2025 9:00 AM EST - 03/12/2025 9:09 AM ESTHospital Encounter [facility] Physical Therapy [address] [place] [address] Isreal Stephen, PT Arrived Discharge Disposition: Home or Self Care03/07/2025 9:32 AM EST - 03/07/2025 11:59 PM ESTHospital Encounter [facility] Physical Therapy [address] [place] [address] [phone] Snow Gomez, GOLD PROSPECTOR Discharge Disposition: Home or Self Care03/07/2025 9:00 AM EST - 03/07/2025 9:31 AM ESTHospital Encounter [facility] Occupational Therapy [address] [place] [phone] Karina Odonnell, OTR/L Discharge Disposition: Home or Self Care03/05/2025 9:25 AM EST - 03/05/2025 11:59 PM ESTHospital Encounter [facility] Occupational Therapy [address] [place] [address] [phone] Karina Odonnell, OTR/L Discharge Disposition: Home or Self Care03/05/2025 9:00 AM EST - 03/05/2025 9:24 AM ESTHospital Encounter [facility] Physical Therapy [address] [place] [address] [phone] Isreal Stephen, PT Discharge Disposition: Home or Self Care02/26/2025 9:47 AM EDT - 02/26/2025 11:59 PM EDTHospital Encounter [facility] Physical Therapy [address] [place] [phone] Edith Darnell, GOLD PROSPECTOR Discharge Disposition: Home or Self Care02/26/2025 9:00 AM EDT - 02/26/2025 9:46 AM EDTHospital Encounter [facility] Occupational Therapy [address] [place] [phone] BelleKarina tan, OTR/L Discharge Disposition: Home or Self Care02/07/2025 9:41 AM EDT - 02/07/2025 11:59 PM EDTHospital Encounter [facility] Physical Therapy [address] [place] [phone] Pascual Cao PTA Discharge Disposition: Home or Self Care02/07/2025 8:58 AM EDT - 02/07/2025 9:40 AM EDTHospital Encounter [facility] Occupational Therapy [address] [place] [phone] BelleMiakl tana, OTR/L Discharge Disposition: Home or Self Care02/05/2025 9:30 AM EDT - 02/05/2025 11:59 PM EDTHospital Encounter [facility] Physical Therapy [address] [place] [address]66 Ángel Krueger Discharge Disposition: Home or Self Care02/05/2025 8:35 AM EDT - 02/05/2025 9:29 AM EDTHospital Encounter [facility] Occupational Therapy [address] [place] [address] [phone] Karina Odonnell, OTR/L Discharge Disposition: Home or Self Care01/31/2025 9:38 AM EDT - 01/31/2025 11:59 PM EDTHospital Encounter [facility] Occupational Therapy [address] [place] [address] [phone] Karina Odonnell, OTR/L Discharge Disposition: Home or Self Care01/31/2025 9:00 AM EDT - 01/31/2025 9:37 AM EDTHospital Encounter [facility] Physical Therapy [address] [place] [address] [phone] Pascual Cao, GOLD PROSPECTOR Discharge Disposition: Home or Self Care2025 9:38 AM EDT - 2025 11:59 PM EDTHospital Encounter [facility] Physical Therapy [address] [place] [phone] Ángel Krueger Discharge Disposition: Home or Self Care2025 8:54 AM EDT - 2025 9:37 AM EDTHospital Encounter [facility] Occupational Therapy [address] [place] [phone] Karina Odonnell OTR/L Discharge Disposition: Home or Self Care01/24/2025 9:41 AM EDT - 01/24/2025 11:59 PM EDTHospital Encounter [facility] Physical Therapy [address] [place] [address] [phone] Snow Gomez PTA Discharge Disposition: Home or Self Care01/24/2025 9:00 AM EDT - 01/24/2025 9:40 AM EDTHospital Encounter [facility] Occupational Therapy [address] [place] [phone] Gretchen Kohli OTA Discharge Disposition: Home or Self Care01/22/2025 9:27 AM EDT - 01/22/2025 11:59 PM EDTHospital Encounter [facility] Physical Therapy [address] [place] [address] 39[address] Ángel Krueger Discharge Disposition: Home or Self Care01/22/2025 9:00 AM EDT - 01/22/2025 9:26 AM EDTHospital Encounter [facility] Occupational Therapy [address] [place] [address] [phone] Karina Odonnell, OTR/L Discharge Disposition: Home or Self Care01/17/2025 9:36 AM EDT - 01/17/2025 11:59 PM EDTHospital Encounter [facility] Physical Therapy [address] [place] [address] [phone] Snow Gomez PTA Discharge Disposition: Home or Self Care01/17/2025 9:00 AM EDT - 01/17/2025 9:35 AM EDTHospital Encounter [facility] Occupational Therapy [address] [place] [address] [phone] Gretchen Kohli OTA Discharge Disposition: Home or Self Care01/15/2025 9:23 AM EDT - 01/15/2025 11:59 PM EDTHospital Encounter [facility] Physical Therapy [address] [place] [phone] Ángel Krueger Discharge Disposition: Home or Self Care01/15/2025 9:00 AM EDT - 01/15/2025 9:22 AM EDTHospital Encounter [facility] Occupational [address] [address] Belle, Karina, OTR/L Discharge Disposition: Home or Self Care01/10/2025 9:43 AM EDT - 01/10/2025 11:59 PM EDTHospital Encounter [facility] Physical Therapy [address] [place] [address] [phone] Janae Peres, PT Discharge Disposition: Home or Self Care01/10/2025 8:47 AM EDT - 01/10/2025 9:42 AM EDTHospital Encounter [facility] Occupational Therapy [address] [place] [phone] Belle, Karina, OTR/L Discharge Disposition: Home or Self Care01/08/2025 9:39 AM EDT - 01/08/2025 11:59 PM EDTHospital Encounter [facility] Occupational Therapy [address] [place] [address] 52706 Belle, Karina, OTR/L Discharge Disposition: Home or Self Care01/08/2025 9:39 AM EDT - 01/08/2025 11:59 PM EDTHospital Encounter [facility] Physical Therapy [address] [place] [address] [phone] Isreal Camacho, PT Discharge Disposition: Home or Self Care01/02/2025 10:52 AM EDT - 01/02/2025 11:59 PM EDTHospital Encounter [facility] Occupational [address] [address] Belle, Karina, OTR/L Discharge Disposition: Home or Self Care01/02/2025 9:47 AM EDT - 01/02/2025 10:51 AM EDTHospital Encounter [facility] Physical Therapy [address] [place] [address] [phone] Isreal Camacho, PT Discharge Disposition: Home or Self Care12/27/2024 9:16 AM EDT - 12/27/2024 11:59 PM EDTHospital Encounter [facility] Occupational Therapy [address] [place] [address] [phone] BelleMikal tana, OTR/L Discharge Disposition: Home or Self Care12/27/2024 8:35 AM EDT - 12/27/2024 9:15 AM EDTHospital Encounter [facility] Physical Therapy [address] [place] [phone] Pascual Cao PTA Discharge Disposition: Home or Self Care12/25/2024 9:28 AM EDT - 12/25/2024 11:59 PM EDTHospital Encounter [facility] Occupational Therapy [address] [place] [address] [phone] BelleKarina tan, OTR/L Discharge Disposition: Home or Self Care12/25/2024 8:42 AM EDT - 12/25/2024 9:27 AM EDTHospital Encounter [facility] Physical Therapy [address] [place] [phone] Isreal Stephen PT Discharge Disposition: Home or Self Care12/20/2024 9:25 AM EDT - 12/20/2024 11:59 PM EDTHospital Encounter [facility] Occupational Therapy [address] [place] [address] [phone] Karina Odonnell, OTR/L Discharge Disposition: Home or Self Care12/20/2024 8:57 AM EDT - 12/20/2024 9:24 AM EDTHospital Encounter [facility] Physical Therapy [address] [place] [address] Pascual Cao, ISAIAS Discharge Disposition: Home or Self Care12/18/2024 9:35 AM EDT - 12/18/2024 11:59 PM EDTHospital Encounter [facility] Occupational Therapy [address] [place] [phone] Karina Odonnell, OTR/L Discharge Disposition: Home or Self Care12/18/2024 9:00 AM EDT - 12/18/2024 9:34 AM EDTHospital Encounter [facility] Physical Therapy [address] [place] [phone] Pascual Cao, ISAIAS Discharge Disposition: Home or Self Care12/13/2024 9:40 AM EDT - 12/13/2024 11:59 PM EDTHospital Encounter [facility] Occupational Therapy [address] [place] [address] [phone] Maria Alejandra Leal, DELANO Discharge Disposition: Home or Self Care12/13/2024 8:51 AM EDT - 12/13/2024 9:39 AM EDTHospital Encounter [facility] Physical Therapy [address] [phone] Pascual Cao PTA Discharge Disposition: Home or Self Carefrom Last 3 Months Social History Tobacco UseTypesPacks/DayYears UsedDateSmoking Tobacco: FormerCigarettes Smokeless Tobacco: Never Tobacco Cessation:Counseling Given: Not Answered Alcohol UseStandard Drinks/WeekCommentsNot Currently0 (1 standard drink = 0.6 oz pure alcohol)Interpersonal Safety Domain Source: IP Abuse ScreeningAnswerDate RecordedPhysical uvnjrRtprhk16/19/2024Verbal kxgerOpnjzk70/19/2024Emotional xiadsMtddnx42/19/2024Financial umtihUauzwa13/19/2024Sexual amjuuFiibqm19/19/2024 Sex and Gender InformationValueDate RecordedSex Assigned at BirthNot on file Legal VwmFmwb2806/11/2012 1:57 PM ESTGender IdentityNot on fileSexual Orientation Not on file Last Filed Vital Signs Vital SignReadingTime TakenCommentsBlood Fydprhnk00/5601 7:50 AM EST Cqrpv305605/08/2024 7:50 AM LYIEtatsojxvme22.8 ??C (98.2 ??F)05/08/2024 7:50 AM ESTRespiratory Llur786705/08/2024 7:50 AM ESTOxygen Pvxcdznqdu50%05/08/2024 7:50 AM ESTInhaled Oxygen Concentration--Tesiyt44 kg (205 lb)05/08/2024 7:50 AM EST Qmtkpj121.8 cm (5' 10 )05/08/2024 7:50 AM ESTBody Mass Index29.41005/08/2024 7:50 AM EST Plan of Treatment DateTypeDepartmentCare Team (Latest Contact Info)Sulmekfdguu17/18/2025 9:00 AM ESTAppointment [facility] Physical Therapy [address] [place], [place] [phone] Isreal Stephen PT 03/19/2025 9:45 AM ESTAppointment [facility] Occupational Therapy [address] [place], [place] [phone] Karina Odonnell OTR/Fay 03/21/2025 9:00 AM ESTAppointment [facility] Occupational Therapy [address] [place], [place] [phone] Karina Odonnell OTR/L 03/21/2025 9:45 AM ESTAppointment [facility] Physical Therapy [address] [place] [address] [phone] Tj Gomezee, GOLD PROSPECTOR 03/26/2025 9:00 AM ESTAppointment [facility] Physical Therapy [address] [place] [phone] Isreal Stephen, PT 03/26/2025 9:45 AM ESTAppointment [facility] Occupational Therapy [address] [place] [phone] Karina Odonnell, OTR/L Health MaintenanceDue DateLast DoneCommentsDepression Mgucpp3501/29/1970Hepatitis C wqjwoc1901/30/19760791Qjwpxcwrfcs87/30/2003FIT/FOBT: Average risk2003 Sigmoidoscopy/CT niogtsfcvtee25/30/2003Shingles vaccine (1 of 2)01/30/2008 Respiratory Syncytial Virus (RSV) or age 60 yrs+ (1 - Risk 60-74 years 1-dose series)2018Annual Wellness Visit (Medicare)10/20/2023Flu vaccine (#1), 04/08/2023, 02/09/2022, Additional history exists COVID-19 Vaccine (2024- season), 08/21/2020, 1A1C test (Diabetic or Prediabetic), 10/20/2023 Diabetic Alb to Cr ratio (uACR) test, 10/20/2023GFR test (Diabetes, CKD 3-4, OR last GFR 15-59), 04/21/2024, 04/19/2024, Additional history bgkfsbOeaszc19, 10/20/2023 Colorectal Cancer Jszmdm0810/30/2026Fecal-DNA (Cologuard): Average risk10/30/2026 10/31/2023, 01/17/2020DTaP/Tdap/Td vaccine (2 - Tdap)/, 11/12/2013Pneumococcal 0-49 years NgzzuenCwwbzutemnuf12/08/2023, 02/11/2015 Pneumococcal 50+ years DhdnineKtuosintg28/08/2023, 02/11/2015AA screenCompleted 02/13/2025Hepatitis A vaccineAged OutNo longer eligible based on patient's age to complete this topicHepatitis B vaccineAged OutNo longer eligible based on patient's age to complete this topicHib vaccineAged OutNo longer eligible based on patient's age to complete this topicMeningococcal (ACWY) vaccineAged OutNo longer eligible based on patient's age to complete this topicMeningococcal B vaccineAged OutNo longer eligible based on patient's age to complete this topic Polio vaccineAged OutNo longer eligible based on patient's age to complete this topic Procedures Procedure NamePriorityDate/TimeAssociated DiagnosisCommentsCOMPREHENSIVE METABOLIC FIJYBCluxmcf28/11/2025 8:00 AM EDT LIPID KXQVJYuvmcdo25/11/2025 8:00 AM EDT ALBUMIN/CREATININE RATIO, CKWWWDijjawd88/11/2025 8:00 AM EDT HEMOGLOBIN K8GPnybyjn26/11/2025 8:00 AM EDT from Last 3 Months or Most Recently Relevant to Health Maintenance Results * Albumin/Creatinine Ratio, Urine (11/09/2024 8:00 AM EDT)ComponentValueRef RangeTest MethodAnalysis TimePerformed AtPathologist SignatureAlbumin Urine<12 0 - 20 mg/L11/09/2024 8:00 AM EDTMERCY LABORATORIESCreatinine, Ur89.339.0 - 259.0 mg/dL11/09/2024 8:00 AM EDTMERCY LABORATORIESComment:Reference range defined for 1st morning urineMicroalb/Shot Grinder Operator. RatioCan not be calculated0.0 - 17.0 mcg/mg creat11/09/2024 8:00 AM EDTMERCY LABORATORIESSpecimen (Source) Anatomical Location / LateralityCollection Method / VolumeCollection Time Received Time11/09/2024 8:00 AM EDT11/09/2024 8:01 AM EDT Narrative Authorizing ProviderResult TypeResult StatusBelyla Veliz DOURINE ORDERABLES Final ResultPerforming OrganizationAddressCity/State/ZIP CodePhone Number [facility] [address] [place] [address], [facility] [phone] [place] [address], [facility] [phone] * (ABNORMAL) Hemoglobin A1C (11/09/2024 8:00 AM EDT)ComponentValueRef RangeTest MethodAnalysis TimePerformed AtPathologist SignatureHemoglobin A1C9.4(H)4.0 - 6.0 %11/09/2024 8:00 AM EDTMERCY LABORATORIESEstimated Avg Wszyyta993yq/dL 11/09/2024 8:00 AM EDTMERCY LABORATORIESComment: The ADA and AACC recommend providing the estimated average glucose result to permit better patient understanding of their HBA1c result. Specimen (Source)Anatomical Location / LateralityCollection Method / Volume Collection TimeReceived Time11/09/2024 8:00 AM EDT11/09/2024 8:01 AM EDT Narrative Authorizing ProviderResult TypeResult StatusBelyla Veliz DOCHEMISTRY ORDERABLES Final ResultPerforming OrganizationAddressCity/State/ZIP CodePhone Number [facility] [address] [place] [address], [facility] [phone] [place] [address], [facility] [phone] * Lipid Panel (11/09/2024 8:00 AM EDT)ComponentValueRef RangeTest MethodAnalysis TimePerformed AtPathologist SignatureCholesterol, Ohjwm7219 - 199 mg/dL 11/09/2024 8:00 AM EDTMERCY LABORATORIESComment: Cholesterol Guidelines: <200 Desirable 200-240 ??Borderline >240 Undesirable HDL50>40 mg/dL11/09/2024 8:00 AM EDTMERCY LABORATORIESComment: HDL Guidelines: <40 Undesirable 40-59 ?Borderline >59 Desirable LDL Omwpuwjqyxn360 - 100 mg/dL11/09/2024 8:00 AM EDTMERCY LABORATORIESComment: LDL Guidelines: <100 Desirable 100-129 ?? Near to/above Desirable 130-159 ?? Borderline >159 Undesirable Direct (measured) LDL and calculated LDL are not interchangeable tests. Chol/HDL Ratio2.6<5.007 8:00 AM EDTMERCY PSPNYVEGCCWFKklfpqszwirrs93<150 mg/dL11/09/2024 8:00 AM EDTMERCY LABORATORIESComment: Triglyceride Guidelines: <150 Desirable 150-199 ??Borderline 200-499 ??High >499 Very high Based on AHA Guidelines for fasting triglyceride, January 2012. JWXX735 - 30 mg/dL11/09/2024 8:00 AM EDTMERCY LABORATORIESSpecimen (Source) Anatomical Location / LateralityCollection Method / VolumeCollection Time Received Time11/09/2024 8:00 AM EDT11/09/2024 8:01 AM EDT Narrative Authorizing ProviderResult TypeResult StatusBenjamin Ball DOCHEMISTRY ORDERABLES Final ResultPerforming OrganizationAddressCity/State/ZIP CodePhone Number [facility] [address] [place], [place] [address] [phone] [place] [address], [facility] [phone] * (ABNORMAL) Comprehensive Metabolic Panel (11/09/2024 8:00 AM EDT)Component ValueRef RangeTest MethodAnalysis TimePerformed AtPathologist SignatureSodium 336426 - 145 mmol/L11/09/2024 8:00 AM [facility] Potassium5.03.7 - 5.3 mmol/L11/09/2024 8:00 AM [facility] UPILnccnnks79623 - 107 mmol/L11/09/2024 8:00 AM [facility] ZRZYK40655 - 31 mmol/L11/09/2024 8:00 AM [facility] LABAnion Ahw722 - 16 mmol/L11/09/2024 8:00 AM [facility] LTSDkolsrp201(H)74 - 99 mg/dL11/09/2024 8:00 AM [facility] YDAEXN820 - 23 mg/dL11/09/2024 8:00 AM [facility] LABCreatinine1.10.70 - 1.20 mg/dL11/09/2024 8:00 AM [facility] LABEstAugusto Filt Rate77>60 mL/min/1.69s80911/09/2024 8:00 AM [facility] LABComment: ? These results are not intended for use in patients <18 years of age. ? eGFR results are calculated without a race factor using the 2020 CKD-EPI equation. Careful clinical correlation is recommended, particularly when comparing to results calculated using previous equations. The CKD-EPI equation is less accurate in patients with extremes of muscle mass, extra-renal metabolism of creatine, excessive creatine ingestion, or following therapy that affects renal tubular secretion. BUN/Creatinine Oykeh432 - 8:00 AM [facility] LABCalcium9.08.6 - 10.4 mg/dL11/09/2024 8:00 AM [facility] LABTotal Protein6.4(L)6.6 - 8.7 g/dL11/09/2024 8:00 AM [facility] LABAlbumin4.23.5 - 5.2 g/dL11/09/2024 8:00 AM [facility] LABAlbumin/Globulin Ratio2.01.0 - 2.5011/09/2024 8:00 AM [facility] LABTotal Bilirubin0.50.00 - 1.20 mg/dL11/09/2024 8:00 AM [facility] LABAlkaline Xidtinkspum887(H)40 - 129 U/L11/09/2024 8:00 AM [facility] PKAFBQ0082 - 50 U/L11/09/2024 8:00 AM [facility] UOPUUG5154 - 50 U/L11/09/2024 8:00 AM [facility] LABSpecimen (Source)Anatomical Location / Laterality Collection Method / VolumeCollection TimeReceived Time11/09/2024 8:00 AM EDT 11/09/2024 8:01 AM EDT Narrative Authorizing ProviderResult TypeResult StatusBeniwona Veliz DOCHEMISTRY ORDERABLES Final ResultPerforming OrganizationAddressCity/State/ZIP CodePhone Number [facility] [address] [place] [address], [facility] [phone] from Last 3 Months or Most Recently Relevant to Health Maintenance Insurance Advance Directives TypeDate RecordedPatient RepresentativeExplanationACP-Advance Directive05/04/2024 8:35 AMSears...DNR Order 05/03/24 Care Teams Team MemberRelationshipSpecialtyStart DateEnd Date Jose Veliz DO [address] [place] [phone] PCP - GeneralInternal Wrkbrnta77/5/22
--- OUTSIDE RECORDS SUMMARY | 2025-03-15 08:58 | XMS_ITS | Clinical Summary ---
Author Organization [facility] Address [address] [place] [address] Care Team Providers Care Woods Boss Name Role Phone Unavailable Primary Care Provider Unavailabl e Social History Tobacco UseTypesPacks/DayYears UsedDateSmoking Tobacco: Never AssessedUT Safety & EnvironmentAnswerDate RecordedFear of Current or Ex-PartnerNot on file 06/23/2023Emotionally AbusedNot on file06/23/2023hysically AbusedNot on file 06/23/2023Sexually AbusedNot on file06/23/2023hysically or Sexually AbusedNot on file06/23/2023Sex and Gender InformationValueDate RecordedSex Assigned at BirthNot on fileLegal TvpFwts5510/29/2021 12:39 AM EDTGender IdentityNot on file Sexual OrientationNot on file Plan of Treatment Health MaintenanceDue DateLast DoneCommentsCT Qopsnytvrlvq1958Colonoscopy 1958Colorectal Cancer Hmoxbnuxj1958FIT-DNA1958FIT1958 FOBT1958 9614Dvflbecoszdop1958Depression Jbgrljwxb89/30/1970Adult Tetanus 01/30/1980Pneumococcal Vaccine: 50+ Years (1 of 1 - PCV)01/30/2008Zoster Vaccines (1 of 2)01/30/2008Fall Risk Lzkfogmut43/30/2023COVID-19 Vaccine (1 - 2024- season)2024Influenza Vaccine (#1)2024HIB VaccinesAged OutNo longer eligible based on patient's age to complete this topicHPV VaccinesAged OutNo longer eligible based on patient's age to complete this topicIPV Vaccines Aged OutNo longer eligible based on patient's age to complete this topic Meningococcal B VaccineAged OutNo longer eligible based on patient's age to complete this topicMeningococcal VaccineAged OutNo longer eligible based on patient's age to complete this topicRotavirus VaccinesAged OutNo longer eligible based on patient's age to complete this topic Insurance
--- OUTSIDE RECORDS SUMMARY | 2025-03-15 08:58 | XMS_ITS | Clinical Summary ---
Author Organization [facility] Healthcare Address [address] [facility] [place] [place] [address] Care Team Providers Care Polisher Apprentice Name Role Phone Jose Veliz Primary Care Provider [phone] Allergies Active AllergyReactionsCriticalityNoted DateCommentsSulfa AntibioticsUnknown Cuepph8701/27/20232913HbujxcwyozkdqEclld74/20/2023 Medications MedicationSigDispense QuantityRefillsLast FilledStart DateEnd DateStatus Aspirin Low Dose 81 MG EC tablet Take 81 mg by mouth in the morning and 81 mg before bedtime.11/10/2022ctive atorvastatin (Lipitor) 80 MG tablet Take 80 mg by mouth Daily07/22/2022ctive citalopram (CeleXA) 20 MG tablet Take 20 mg by mouth Daily09/13/2022ctive colestipol (Colestid) 1 g tablet Take 2 g by mouth Daily07/12/2022ctive cyclobenzaprine (Flexeril) 10 MG tablet Take 10 mg by mouth at tfubsvx8210/20/2022ctive insulin aspart (NovoLOG) 100 UNIT/ML injection Inject 100 mL under the skin in the morning and 100 mL at noon and 100 mL in the evening. Inject with meals.Active insulin glargine (Basaglar KwikPen) 100 UNIT/ML pen Indications:Type 2 diabetes mellitus with other specified complication, with long-term current use of insulin (HCC)INJECT 56 UNITS UNDER THE SKIN EVERY NIGHT AT BEDTIME 60 mL ctive baclofen (Lioresal) 20 MG tablet 5Active insulin pen needle (B-D UF III MINI PEN NEEDLES) 31G x 5 mm misc Inject 1 each under the skin in the morning and 1 each at noon and 1 each in the evening and 1 eachbefore bedtime. Use as instructed.Active Active Problems ProblemNoted DateDiagnosed DateCarotid stenosis, right02/04/2025 Overview (02/04/2025): s/p right CEA - 2021, Carotid US: B/L patent - 06/2024, Cellulitis of left hand02/04/2025 Overview (02/04/2025): Problem List clean-up per request of Phys. EHR Cmte Cervical spondylosis with /06/2025hronic ulcer of left foot with fat layer ehoclov6902/04/2025ontracture, left ankle02/04/2025Decreased hearing of both ears02/04/2025Esophageal amejukoliqr27/06/2025 Overview (02/04/2025): Problem List clean-up per request of Phys. EHR Cmte Diabetes mellitus without bvsczuzqrenm75/06/2025Foot drop, right02/04/2025H/O carotid njarhqlt44/06/2025History of cervical spinal /06/2025 Jzybwjpaui38/06/2025 Overview (02/04/2025): Problem List clean-up per request of Phys. EHR Cmte Exirhgjgijlimqvobwbo48/06/4503Ocohgdtssiif20/06/2025Impaired mobility and activities of daily ikrnuk9102/04/2025 Overview (02/04/2025): Problem List clean-up per request of Phys. EHR Cmte Internal carotid artery stent iqlefqq4502/04/2025Laceration of left index finger with xgwyinkfukhw35/06/2025 Overview (02/04/2025): Problem List clean-up per request of Phys. EHR Cmte Major depressive xbbgseac10/06/2025Myelopathy concurrent with and due to spinal stenosis of cervical dvqrft9802/04/2025 Overview (02/04/2025): Problem List clean-up per request of Phys. EHR Cmte Polyneuropathy due to type 2 diabetes yhwtvbxt49/06/2025Pharyngeal dysphagia 02/04/2025 Overview (02/04/2025): Problem List clean-up per request of Phys. EHR Cmte Pre-operative cardiovascular examination, new EKG abnormalities c/w ischemia 02/04/2025 Overview (02/04/2025): Problem List clean-up per request of Phys. EHR Cmte Screening for colon ombpqx9402/04/2025Spastic itkyzqdutvd08/06/2025 Overview (02/04/2025): Problem List clean-up per request of Phys. EHR Cmte Lecridaccw26/06/2025Tinnitus, ufzvjtnuw52/06/2025Type 2 diabetes mellitus with mrnztdvkfhpag08/06/2025Internal derangement of right knee02/04/2025 Encounters DateTypeDepartmentCare EvqnGnciybgsasw72/08/2025 1:10 PM EDTOffice Visit [facility] [address] [place] [address] Lupe Barry MD Sensorineural hearing loss (SNHL), bilateral (Primary Dx); Bilateral eeevotqy98/08/2025amboo flowsheet [facility] [address] [place] [address] Lupe Barry MD 02/06/20259801Qoxdsd48/06/2025 1:00 PM EDTClinical Support [facility] [address] [place] [address] Dorothy Cat CCC-A Sensorineural hearing loss (SNHL) of both ears (Primary Dx); Tinnitus, asgrwrdnm26/06/2025amboo flowsheet [facility] [address] [place] [address] Dorothy Cat CCC-A from Last 3 Months Immunizations ImmunizationAdministration DatesNext TguPGH3705/24/2020Influenza, High Dose Seasonal, Preservative Free02/10/2024Influenza, injectable, MDCK, preservative free, xtbfalqnfkzi58/11/2022,02/06/2020Influenza, injectable, quadrivalent, preservative free02/16/2021,01/30/2018Influenza, seasonal, ihznnlihhy48/13/2015 Pneumococcal Polysaccharide GGPO2640Td (adult), 5 Lf tetanus toxoid, preservative free, tlwnsavz00/14/2014 Family History Medical HistoryRelationNameCommentsDiabetesFatherHypertensionFatherDiabetes Paternal GrandfatherRelationNameStatusCommentsFatherDeceasedMotherDeceased Paternal Grandfather Social History Tobacco UseTypesPacks/DayYears UsedDateSmoking Tobacco: FormerCigarettesPassive Smoke Exposure: PastSmokeless Tobacco: Never Tobacco Cessation:Counseling Given: Yes Alcohol UseStandard Drinks/WeekCommentsNever0 (1 standard drink = 0.6 oz pure alcohol)Sex and Gender InformationValueDate RecordedSex Assigned at BirthNot on fileLegal EfwTett2207/14/2022 7:21 PM EDTGender IdentityNot on fileSexual OrientationNot on file Last Filed Vital Signs Vital SignReadingTime TakenCommentsBlood Euspluww049/5902/06/2025 12:55 PM EDT Wasnj017902/06/2025 12:55 PM EDTTemperature--Respiratory Gdqa1597 1:09 PM EDTOxygen Zbsbmngiuv26%11/17/2022 1:15 PM EDTInhaled Oxygen Concentration-- Uzveei02.5 kg (204 lb)02/06/2025 12:55 PM ENRNkpfxn109.1 cm (5' 10.5 )02/06/2025 12:55 PM EDTBody Mass Index28.8602/06/2025 12:55 PM EDT Plan of Treatment DateTypeDepartmentCare Team (Latest Contact Info)Zzpzlgtnmah15/05/2026 2:30 PM ESTClinical Support [facility] [address] [place] [address] Dorothy Cat, [facility] [address] [place] [address] Procedures Procedure NamePriorityDate/TimeAssociated DiagnosisCommentsAUDITORY FUNCTION POARHVbqxdse03/06/2025 1:50 PM EDT from Last 3 Months Results * Auditory function tests (02/04/2025 1:50 PM EDT) Narrative Dorothy Cat [facility] - 02/04/2025 1:50 PM EDT Right Ear: Mild to moderate sensorineural hearing loss above 250 Hz Left Ear: ?? Mild to severe sensorineural hearing loss from 500 Hz - 4K Hz rising to moderate hearing loss above 4K Hz Authorizing ProviderResult TypeResult StatusDebridgette Cat [facility]-AAUDIOLOGY SERVICES ORDERABLESFinal Result from Last 3 Months Insurance Care Teams Team MemberRelationshipSpecialtyStart DateEnd Date Jose Veliz DO [address] [place] [id number] PCP - GeneralInternal Medicine11/22/24
[2025-03-15 09:50] LABS: Hematocrit 40.6 % (42.0-54.0); Hemoglobin 14.0 g/dL (14.0-18.0); Immature Granulocytes Abs Auto 0.02 10^3/uL (0.00-0.03); Immature Granulocytes Pct Auto 0.3 % (0.0-0.5); Lymphocytes Absolute Auto 1.9 10^3/uL (1.2-3.8); Mean Corpuscular HGB Conc 34.5 g/dL (29.9-35.2); Mean Corpuscular Hemoglobin 30.9 pg (25.9-34.0); Mean Corpuscular Volume 89.6 fL (80.0-94.0); Platelet Count 248 10^3/uL (150-450); Red Blood Count 4.53 10^6/uL (4.70-6.10); White Blood Count 7.5 10^3/uL (4.0-11.0)
[2025-03-15 10:14] LABS: Alanine Aminotransferase 45 U/L (16-63); Albumin Globulin Ratio 1.3; Albumin Level 3.8 g/dL (3.4-5.0); Alkaline Phosphatase 121 U/L (46-116); Anion Gap 11.7; Aspartate Amino Transferase 21 U/L (15-37); Blood Urea Nitrogen 10.0 mg/dL (7.0-18.0); Calcium 8.8 mg/dL (8.5-10.1); Carbon Dioxide 30.7 mmol/L (21.0-32.0); Chloride 102 mmol/L (98-107); Cholesterol 116 mg/dL (<=200); Estimated GFR (African America >60 (>=60 mL/min/1.73m^2); Estimated GFR (Non-African Ame >60 (>=60 mL/min/1.73m^2); Globulin 2.9 g/dL; Glucose 325 mg/dL (74-106); HDL Cholesterol 55 mg/dL (40-60); Potassium 4.4 mmol/L (3.5-5.1); Sodium 140 mmol/L (136-145); Total Protein 6.7 g/dL (6.4-8.2); Triglycerides 41 mg/dL (<=150); VLDL CHOLESTEROL 8.2 mg/dL
[2025-03-15] MEDS: REGADENOSON 0.4 MG/5 ML SYRINGE IV (11:43)
--- NOTE | 2025-03-15 11:43 | PC.NURSE ---
Nursing Note Cardiac Stress Test Reviewed: Medication, allergies and patient history reviewed. Stress Test: [x ] Patient tolerated stress test well. [ ] Patient unable to tolerate walking on treadmill. Switched to Lexiscan stress test. [x ] No chest pain noted per patient [ ] Chest pain that resolved prior to leaving stress lab. [x ] No dyspnea noted. [ ] Dyspnea that resolved prior to leaving stress lab. [x ] Patient left stress lab asymptomatic and hemodynamically stable. [ ] Patient taken to the Emergency Room due to non-resolving symptoms following stress test. [ ] Patient achieved target heart rate. [ ] Patient unable to achieve target heart rate. [ ] Aminophylline administered as reversal agent to Lexiscan (Regadenoson). [ ] Nitro administered. Nursing Comments:
--- NOTE | 2025-03-18 16:50 | PM.STRESS ---
Stress Test Stress Test Requesting physician: Jose Veliz Procedure: Lexiscan nuclear stress test General Information: Reason for Stress Test: [Chest pain] Cardiac History and Risk Factors: [Hypertension and cardiovascular disease, former smoker] Resting 12 - Lead Electrocardiogram: Resting twelve-lead EKG showed normal sinus rhythm, heart rate 61 bpm, old septal infarct, no T or ST changes. Resting blood pressure 182/81 mmHg. The patient was injected with Lexiscan 0.4 mg IV and monitored for few minutes. Patient did not report any symptoms. Peak heart rate 76 bpm which represents 49% of age-predicted maximum heart rate and peak blood pressure 182/81 mmHg EKGs throughout the test did not show any significant T or ST changes or any arrhythmias Stress Test: Protocol: [Lexiscan] Exercise Capacity: [Not applicable] Blood Pressure Response: [Normal] Rhythm: [No arrhythmia] ST - Response: [No ST changes] Patient Response: [No symptoms] Interpretation: Negative Lexiscan EKG stress test for ischemia The nuclear myocardial perfusion images result is reported separately Samantha Fisher MD, FACC
== END 2025-03-15 08:54 | disposition home or self-care (01) ==
LOC: NM 08:55
PROVIDERS: PCP Internal Medicine; Visit Provider Internal Medicine
DX: E11.65 Type 2 diabetes mellitus with hyperglycemia (principal); Z79.4 Long term (current) use of insulin; E78.00 Pure hypercholesterolemia, unspecified; I10 Essential (primary) hypertension; Z12.5 Encounter for screening for malignant neoplasm of prostate; R07.9 Chest pain, unspecified; I65.21 Occlusion and stenosis of right carotid artery
CPT/HCPCS: 36415; 78452; 80053; 80061; 82043; 82570; 83036; 85025; 93017; A9500; G0103; J2785